=== PATIENT | male | born 1975 | race Two or more races ===

== ENCOUNTER → 2025-02-28 09:14 | Outpatient (BNV) | payer OTHER, SELFPAY | PROVIDERS: Visit Provider Radiology Diagnostic Radiology | DX: S68.620A Partial traumatic transphalangeal amputation of right index finger, initial encounter (principal) | CPT/HCPCS: 73130 ==

== ENCOUNTER 2025-02-28 09:45 | Emergency (ER) | payer OTHER, SELFPAY ==
--- OUTSIDE RECORDS SUMMARY | 2024-03-13 11:00 | XMS_ITS ---
Author Organization [facility], [place] Address [address] [facility] 1 [place] [address] Care Team Providers Care Crime Scene Photographer Name Role Phone Migration, Provider Unavailable Unavailable REASON FOR VISIT Follow-up Appt Encounters Encounter Location Date Provider Diagnosis [facility], [address] [address] 03/13/2024 Provider Migration Plan Of Treatment No Information Progress Notes * ZAHRAA COOPEROB:1975 ([age] yo M)Acc No.[id number]:03/13/2024 Progress Notes Patient: Zion DUGGANMaryanne MARTINEZ Provider: Abdirahman lindsay Migration :1975 A ge:48 Y S ex:Male Date:03/13/2024 Address:[address] [place], [place] [phone] Subjective: * Chief Complaints: * F ollow-up Appt * Ocular Surgical History: Objective: Vision Examination: * Electronic signature of Prov ider Migration on 02/28/2025 at 11:31 AM EDT Sign off status: Pending * Provider: Abdirahman lindsay Migration Date: 0 03/13/2024 Generated for Muriel zheng/Barb/eTransmitting on: 0 02/28/2025 11:31 AM EDT
--- OUTSIDE RECORDS SUMMARY | 2024-04-27 12:00 | XMS_ITS ---
Author Organization [facility], [place] Address [address] [facility] 1 [place] [address] Care Team Providers Care Print Shop Helper Name Role Phone Migration, Provider Unavailable Unavailable REASON FOR VISIT Follow-up Appt Encounters Encounter Location Date Provider Diagnosis [facility], [address] [address] 04/27/2024 Provider Migration Plan Of Treatment No Information Progress Notes * ZAHRAA COOPEROB:1975 ([age] yo M)Acc No.[id number]:04/27/2024 Progress Notes Patient: Zion DUGGANMaryanne MARTINEZ Provider: Abdirahman Bueno :1975 A ge:49 Y S ex:Male Date:04/27/2024 Address:[address] [place], [place] [phone] Subjective: * Chief Complaints: * F ollow-up Appt * Ocular Surgical History: Objective: Vision Examination: * Electronic signature of Prov ider Migration on 02/28/2025 at 11:31 AM EDT Sign off status: Pending * Provider: Abdirahman lindsay Migration Date: 1 Generated for Muriel zheng/Barb/eTransmitting on: 0 02/28/2025 11:31 AM EDT
--- NOTE | ~2025-02-28 | XR_ITS ---
EXAMINATION: XR HAND, RIGHT CLINICAL INFORMATION: amputated finger tips COMPARISON: None available. TECHNIQUE: PA, lateral, and oblique views of the right hand. FINDINGS: There is amputation of the soft tissues of the distal fourth digit and the distal aspect of the tuft. Bone is exposed.. No other abnormalities are evident. XR/XR hand RT min 3V IMPRESSION: Amputation of the distal fourth digit of the right hand involving soft tissues and the tip of the tuft. Electronically signed by: Kali Jin MD 02/28/2025 10:18 AM EDT
[2025-02-28 09:47] VITALS: BP 168/80; PULSE 91; RESP 18; TEMP 35.7; O2SAT 96; BMI 28.2
--- NOTE | 2025-02-28 11:15 | ED.EXTPRO ---
HPI - Extremity Problem General Chief complaint: Extremity Injury, Upper Stated complaint: index/ middle finger injury Time Seen by Provider: 02/28/25 10:49 Source: patient Mode of arrival: ambulatory Limitations: no limitations History of Present Illness ED Provider: Corine Phelan PA-C HPI Narrative: Patient reports to the emergency department today after falling traumatic event that occurred at work to his right hand. Original note was written during patient's visit however patient is seen by orthopedist. Accidentally deleted Patient is employed by [employer]. He reports while working today he had a metal board while holding onto the side is something in it sliced over his hand. Patient is left-hand dominant. He reports not feeling any significant pain. He covered it and came right here. He has been working for this [employer] for several years with no prior injuries to this in the past. He is denying any paresthesias or weakness. His tetanus status is unknown Related Data Previous Rx's ?Medication ?Instructions ?Recorded amoxicillin 875 mg-potassium 1 tab PO BID 7 days #14 tabs 03/02/25 clavulanate 125 mg tablet oxycodone-acetaminophen 5 mg-325 1 tab PO Q6H PRN Pain #10 tabs 03/05/25 mg tablet Allergies Allergy/AdvReac Type Severity Reaction Status Date / Time No Known Allergies Allergy Verified 03/02/25 11:52 Review of Systems Review of Systems: Yes all other systems are reviewed and are negative PMFSH Past Medical History Attestation statement: The following information was validated with the patient. Source: old records reviewed and nursing notes reviewed Social History Social History (Updated 03/02/25 @ 12:03 by TATE Horowitz) Patient Tobacco Use Status: Never used Tobacco Current occupational status: employed Current occupation: [employer] Physical Exam Exam: Exam: Vital Signs: Vital Signs: Last Vital Signs Temp 96.3 F L 02/28/25 11:28 Pulse 91 02/28/25 11:28 Resp 18 02/28/25 11:28 BP 168/80 H 02/28/25 11:28 Pulse Ox 96 02/28/25 11:28 O2 Del Method Room Air 02/28/25 11:28 BMI result Body Mass Index 28.2 General: Appears in no acute distress, appears well nourished body habitus is normal, appears stated age. No septic or ill-appearing. Vitals reviewed normal, PMH/Social and Surgical hx reviewed including allergies and current medications. Head: Normocephalic, no obvious trauma or skin lesions noted. Eyes: EOMI ENMT: moist oral mucosa Neck: trachea midline Cardiovascular: peripheral perfusion normal, Regular heart rate Respiratory: no respiratory distress Abdomen: nondistended Extremities: warm and moving without difficulty - open fracture right middle and 4th finger as above with damage nailbed. Cap refill less than 3 seconds distal pulses 2+ sensation is intact but no pain on proportion no arterial bleed or tendon rupture Psych: Cooperative Neuro: Alert and oriented. Medications Administered Discontinued Medications Generic Name Dose Route Start Last Admin Trade Name Freq PRN Reason Stop Dose Admin Diphtheria/Tetanus/Acell Pertussis 0.5 ml 02/28/25 11:22 02/28/25 11:33 Diphth,Pertus(Acell),Tet Adult 0.5 Ml Syringe IM 02/28/25 11:23 0.5 ml .ONCE ONE Administration Medical Decision Making Medical Decision Making MDM Narrative: Well-appearing 49-year-old male who sustained injury to his nondominant hand while working today via a sharp object. Upon arrival to ED he is afebrile. He received a rapid medical exam where he had imaging done of his right hand which shows open fractures of these affected areas. There is no evidence of arterial bleed or tendon rupture neurovascularly intact. There was no tissue unfortunately to still sutured together. Plan to place surgery form on this area and place on Keflex with outpatient follow up was discussed with on-call orthopedist Darren Miles who agreed with this plan. Patient's tetanus was updated. He was placed on Keflex. While I was taking care of patient orthopedist office already reached out to him to schedule follow up with him 2 days from now. As this was a work-related injury I will keep him out of work until further evaluated. Patient states he has pain is well-controlled he did not feel he needed anything stronger recommend Tylenol for today Motrin tomorrow with cool compresses. ED precautions were discussed with the patient he demonstrated verbal understanding of this plan he agreed he was discharged home stable Differential Diagnosis Differential Diagnoses: The differential diagnosis associated with the presentation includes open fracture tendon rupture arterial bleed Admission/Observation Consideration of admission/observation: Escalation of care including admission/observation considered Patient would have been admitted to the hospital had his work up had any findings where hospital admission was appropriate and his clinical presentation warranted hospital admission. Consult Healthcare Provider Management of the patient was discussed with: Crm Marketing Executive (orthopedist) Independent Interpretation I performed an independent interpretation of an: Plain X-Ray Radiology Impression Discussion of test interpretation with radiology: I have reviewed the radiologist's reading. Prescription Management I considered prescription management with: Pain Medication and Antibiotic Procedures Laceration Laceration 1: Site: upper extremity Side (If applicable): right Size (cm): 1.5 Description: other (Macerated tissue skin avulsion) Pre-repair: wound explored and irrigated extensively Technique: other (Surgifoam, nonadhesive dressing and coban to both right middle and fourth distal phalanx) Discharge Plan Discharge Clinical Impression: Open fracture of phalanx of finger of right hand, Laceration of right middle finger with damage to nail Patient Disposition: Home, Self-Care Instructions: Finger Fracture (ED), Finger Laceration (ED) Additional Instructions: You were seen in the emergency department today status post an injury to her right hand while working. You have open fracture Of her 4th digit with skin avulsions to both of these areas. I placed Surgifoam on both of these areas you do not need to remove this this will slowly be absorbed by your wound. You can however change the dressing on the outside if he would like otherwise please leave this dressing in place until you see orthopedics in 2 days on Wednesday. I would avoid any NSAIDs such as ibuprofen or Motrin over the next 2 days as this increases bleeding. You can take 650 mg of Tylenol every 6 hours if needed for pain and discomfort. Do not exceed 3000 mg in 24 hours. Try to keep your rapid upper extremity she has possible. general handling supervisor the antibiotic from the pharmacy as this is an open fracture and there be risk for bone infection. Return for any concerns such as increased pain discharge or numbness at the site. Prescriptions: No Action oxycodone-acetaminophen 5-325 mg Tablet 1 tab PO Q6H PRN (Reason: Pain) Qty: 10 0RF Rx Instructions: Partial Fill upon patient request. amoxicillin-pot clavulanate 875-125 mg tablet 1 tab PO BID 7 Days Qty: 14 0RF Ref[place]: [facility] [place]Provider Group] - 2 days Referral Note: appt scheduled as they called you while here Stand Alone Forms: Work/School Release Discharge Date/Time: 02/28/25 12:16 Print Language: Estonian
[2025-02-28 11:28] VITALS: BP 168/80; PULSE 91; RESP 18; TEMP 35.7; O2SAT 96
[2025-02-28] MEDS: Diphth,Pertus(ACell),Tet Adult 0.5 ML SYRINGE IM (11:33)
--- OUTSIDE RECORDS SUMMARY | 2025-02-28 11:33 | XMS_ITS | Patient Health Record ---
Author Organization [facility] Address [address] [place] [address] Care Team Providers Care Plumber'S Assistant Name Role Phone Hany Gee Primary Care Provider Bart Gallegos Unavailable [phone] Reason For Referral No Information Medications Medication SIG (Take, Route, Fr equency, Duration) Notes Start Date End Date Status Ibuprofen Active Percocet 5-325 MG 1 tablet as needed O rally every 6 hrs 03/22/2012 Active Problems Problem Type SNOMED Code ICD Code Onset Dates Problem Status W/U Status Risk Notes Problem Hammer toe (072979067) Hammer toe (735.4) Active confirmed Problem Ganglion cyst (16532819) Ganglion Cyst (727.43) Active confirmed Problem Pain in limb (31449618) Pain in Limb (729.5) Active confirmed Problem Exostosis (54828888) Exostosis (726.91) Active confirmed Plan Of Treatment Pending Test Test Name Order Date X ray : Foot, right 2V 03/22/2012 X ray : Foot, right 2V 04/01/2012 X ray : Foot, right 2V 04/15/2012 X ray : Foot, right 2V 05/17/2012 X ray : Foot, left 3V 12/29/2011 X ray : Foot, right 3V 12/29/2011 L4386- Walking Boot 03/22/2012 L4386- Walking Boot 04/01/2012 Insurance Providers Payer Name Payer Address Payer Phone Subscriber Number Group Number Insured Name Patient Relationship to Insured Coverage Start Date Coverage End Date [facility] [address] [place] [address] [id number] Olegario Lao Self - patient is the insured Medical (General) History Medical History History ICD Code chicken pox headaches/migraines Surgical History Surgery Date(Month/Year) bunionectomy 03/17/12
--- OUTSIDE RECORDS SUMMARY | 2025-02-28 11:33 | XMS_ITS | Clinical Summary ---
Author Organization [facility] [address] [facility] Address [address] [place] [address] Phone Care Team Providers Care Maintenance Superintendent Name Role Phone Hany Gee MD Primary Care Provider [phone] Allergies Active Allergy Reactions Criticality Noted Date Comments Latex Itching,Rash 09/21/2024 Medications GaviLyte-C 240-22.72-6.72 -5.84 gram solution MIX AND DRINK DIRECTED FOR 1 DOSE 08/07/2024 Active Active Problems Problem Noted Date Diagnosed Date History of diverticulitis 08/07/2024 Surgical History Surgery Date Site/Laterality Comments COLONOSCOPY Family History Medical History Relation Name Comments Colon polyps Father Heart disease Father Colon cancer Neg Hx Relation Name Status Comments Father Social History Tobacco Use Types Packs/Day Years Used Date Smoking Tobacco: Never Smokeless Tobacco: Never Tobacco Cessation:Counseling Given: Not Answered Alcohol Use Standard Drinks/Week Comments Yes 1 (1 standard drink = 0.6 oz pur e alcohol) Interpersonal Safety Answer Date Record ed Physical Abuse 09/29/2024 Verbal Abuse 09/29/2024 Sex and Gender Information Value Date Recorded Sex Assigned at Male 09/29/2024 8:40 AM EDT Legal Sex Male 1:55 AM EST Gender Identity Male 09/29/2024 8:40 AM EDT Sexual Orientation Straight 09/29/2024 8: 40 AM EDT Obstetrics History Last Filed Vital Signs Vital Sign Reading Time Taken Comments Blood Pressure 117/87 09/29/2024 10:17 AM EDT Pulse 84 09/29/2024 10:17 AM EDT Temperature 36.2 C (97.2 F) 09/29/2024 9:11 AM EDT Respiratory Rate 15 09/29/2024 10:17 AM EDT Oxygen Saturation 98% 09/29/2024 10:17 AM EDT Inhaled Oxygen Concentration - - Weight 79.4 kg (175 lb) 09/29/2024 9:11 AM EDT Height 167.6 cm (5' 6 ) 09/29/2024 9:11 AM EDT Body Mass Index 28.25 09/29/2024 9:11 AM EDT Plan of Treatment Health Maintenance Due Date Last Done Comments Hepatitis B Vaccines (1 of 3 - 19+ 3-dose series) 1995 DTaP,Tdap,and Td Vaccines (2 - Td or Tdap) 12/15/2018 12/15/2008 Cholesterol Screening (Lipid Panel) 05/31/2022 HIV Screening 05/31/2022 Hepatitis C Screening 05/31/2022 Social Influencers of Health Screening 05/31/2022 Depression Screening 06/28/2024 COVID-19 Vaccine (3 - 2024-2 6 season) 2025 08/16/2020, 07/19/2020 Influenza Vaccine (#1) 2025 Colorectal Cancer Screening: Colonoscopy 09/29/2034 09/29/2024 MMR Vaccines Aged Out 12/30/2018 No longer eligi ble based on patient's age to complete this topic HIB Vaccines Aged Out No longer eligi ble based on patient's age to complete this topic HPV Vaccines Aged Out No longer eligi ble based on patient's age to complete this topic Hepatitis A Vaccines Aged Out No long er eligible based on patient's age to complete this topic IPV Vaccines Aged Out No longer eligi ble based on patient's age to complete this topic Meningococcal ACWY Vaccine Aged Out N o longer eligible based on patient's age to complete this topic Meningococcal B Vaccine Aged Out No l onger eligible based on patient's age to complete this topic Pneumococcal Vaccine: Pediatrics (0 to 5 Years) and At-Risk Patients (6 to 49 Years) Aged Out No longer eligible b ased on patient's age to complete this topic RSV Immunization Patients Under 20 months Aged Out No longer eligible b ased on patient's age to complete this topic Varicella Vaccines Aged Out No longer eligible based on patient's age to complete this topic Procedures Procedure Name Priority Date/Time Associated Diagnosis Comments COLONOSCOPY Routine 09/29/2024 9:56 AM EDT Oropharyngeal dysphagia Colon cancer screening from Last 3 Months or Most Recently Relevant to Health Maintenance Results * COLONOSCOPY Anesthesia - MAC; [facility] ENDOSCOPY (09/29/2024 9:56 AM EDT) Anatomical Region Laterality Modality Other 09/29/2024 9:29 AM EDT Impressions 09/29/2024 9:55 AM EDT - Diverticulosis in the entire examined colon. - Non-bleeding internal hemorrhoids. - The examination was otherwise normal on direct and retroflexion views. - No specimens collected. Recommendation: - Perform an upper GI endoscopy today. - Repeat colonoscopy in 10 years for surveillance. Narrative 09/29/2024 9:55 AM EDT [facility] GI Patient Name: Olegario Lao Procedure Date: 09/29/2024 9:29 AM Date of : 1975 Age: 49 Room: ROOM 14 Gender: Male Note Status: Finalized Attending MD: Farshad Trejo MD, Procedure Date No Time: 09/29/2024 Procedure: Colonoscopy Indications: Rectal bleeding Providers: Farshad Trejo MD Referring MD: Farshad Trejo MD Medicines: Monitored Anesthesia Care Complications: No immediate complications. Estimated Blood Loss: Estimated blood loss: none. Procedure: Pre-Anesthesia Assessment: - ASA Grade Assessment: II - A patient with mild systemic disease. - After reviewing the risks and benefits, the patient was deemed in satisfactory condition to undergo the procedure. After I obtained informed consent, the scope was passed under direct vision. Throughout the procedure, the patient's blood pressure, pulse, and oxygen saturations were monitored continuously.The Colonoscope was introduced through the anus and advanced to the cecum, identified by appendiceal orifice and ileocecal valve. The colonoscopy was performed without difficulty. The patient tolerated the procedure well. The quality of the bowel preparation was good. Findings: Multiple small and large-mouthed diverticula were found in the entire colon. Non-bleeding internal hemorrhoids were found during retroflexion. The hemorrhoids were small. The exam was otherwise without abnormality on direct and retroflexion views. Procedure Code(s): --- Professional --- 78570, Colonoscopy, flexible; diagnostic, including collection of specimen(s) by brushing or washing, when performed (separate procedure) Diagnosis Code(s): --- Professional --- K62.5, Hemorrhage of anus and rectum CPT copyright 2020 [employer]. All rights reserved. The codes documented in this report are preliminary and upon solutions analyst review may be revised to meet current compliance requirements. Farshad Trejo MD 09/29/2024 9:55:40 AM This report has been signed electronically.Farshad Trejo MD Number of Addenda: 0 Note Initiated On: 09/29/2024 9:29 AM Scope In: Scope Out: Endoscopy Department at [facility] - [address] [place] [id number] Procedure Note Farshad Trejo MD - 09/29/2024 [facility] GI Patient Name: Olegario Lao Procedure Date: 09/29/2024 9:29 AM Date of : 1975 Age: 49 Room: ROOM 14 Gender: Male Note Status: Finalized Attending MD: Farshad Trejo MD, Procedure Date No Time: 09/29/2024 Procedure: Colonoscopy Indications: Rectal bleeding Providers: Farshad Trejo MD Referring MD: Farshad Trejo MD Medicines: Monitored Anesthesia Care Complications: No immediate complications. Estimated Blood Loss: Estimated blood loss: none. Procedure: Pre-Anesthesia Assessment: - ASA Grade Assessment: II - A patient with mild systemic disease. - After reviewing the risks and benefits, thepatient was deemed in satisfactory condition to undergo the procedure. After I obtained informed consent, the scope was passed under direct vision. Throughout theprocedure, the patient's blood pressure, pulse, and oxygen saturations were monitored continuously.The Colonoscope was introduced through the anus and advanced to the cecum, identified by appendiceal orifice and ileocecal valve. The colonoscopy was performed without difficulty. The patient tolerated the procedure well. The quality of the bowel preparation was good. Findings: Multiple small and large-mouthed diverticula were found in the entire colon. Non-bleeding internal hemorrhoids were found during retroflexion. The hemorrhoids were small. The exam was otherwise without abnormality ondirect and retroflexion views. Procedure Code(s): --- Professional --- 75523, Colonoscopy, flexible; diagnostic, including collection of specimen(s) by brushing or washing,when performed (separate procedure) Diagnosis Code(s): --- Professional --- K62.5, Hemorrhage of anus and rectum CPT copyright 2020 [employer]. All rights reserved. The codes documented in this report are preliminary and upon solutions analyst reviewmay be revised to meet current compliance requirements. Farshad Trejo MD 09/29/2024 9:55:40 AM This report has been signed electronically.Farshad Trejo MD Number of Addenda: 0 Note Initiated On: 09/29/2024 9:29 AM Scope In: Scope Out: Endoscopy Department at [facility] - [address] [place] [phone] IMPRESSION: - Diverticulosis in the entire examined colon. - Non-bleeding internal hemorrhoids. - The examination was otherwise normal on directand retroflexion views. - No specimens collected. Recommendation: - Perform an upper GI endoscopy today. - Repeat colonoscopy in 10 years forsurveillance. Farshad Trejo MD GI~PROCEDURE ORDERABLES Final Result from Last 3 Months or Most Recently Relevant to Health Maintenance Insurance [facility] Care Teams Maintenance Superintendent Relationship Specialty Start Date End Date Hany Gee MD [address] [place] [phone] PCP - General Internal Medicine 07/04/24
--- OUTSIDE RECORDS SUMMARY | 2025-02-28 11:33 | XMS_ITS ---
Author Name [facility] Organization Unknown Care Team Organization Name Specialty Phone Email Start Date End Da te [facility] Hany [facility] 11/02/2022 02/14/20 24
--- OUTSIDE RECORDS SUMMARY | 2025-02-28 11:33 | XMS_ITS | Patient Health Record ---
Author Organization [facility] [place] Address [address] [place] [address] Care Team Providers Care Tapper Supervisor Name Role Phone Migration, Provider Unavailable Unavailable Reason For Referral No Information Encounters Encounter Location Date Provider Diagnosis [facility] [address] [address] 03/13/2024 Provider Migration [facility] [address] [address] 04/27/2024 Provider Migration Plan Of Treatment No Information Insurance Providers Payer Name Payer Address Payer Phone Subscriber Number Group Number Insured Name Patient Relationship to Insured Coverage Start Date Coverage End Date [employer] [facility] [address] [place] [phone] [id number] MARTINEZ COOPER Self - patient is the insured
== END 2025-02-28 12:16 | disposition home or self-care (01) ==
PROVIDERS: Emergency Provider Emergency Medicine Emergency Medical Services
DX: S61.212A Laceration without foreign body of right middle finger without damage to nail, initial encounter (principal); S62.602A Fracture of unspecified phalanx of right middle finger, initial encounter for closed fracture; M79.641 Pain in right hand; W26.9XXA Contact with unspecified sharp object(s), initial encounter; Y93.9 Activity, unspecified; Y92.9 Unspecified place or not applicable; Y99.0 Civilian activity done for income or pay; Z23 Encounter for immunization
CPT/HCPCS: 12041; 73130; 90471; 90715; 99284

== ENCOUNTER 2025-03-02 11:48 | Outpatient (REF) | payer BC, OTHER, SELFPAY ==
--- NOTE | ~2025-03-02 | XR_ITS ---
EXAMINATION: XR HAND, RIGHT CLINICAL INFORMATION: M79.641 - Pain in right hand , follow-up amputation COMPARISON: 2 days ago TECHNIQUE: PA, lateral, and oblique views of the right hand. FINDINGS: Bandages placed over the third and fourth digits. Again noted is soft tissue amputation and minimal infiltration the tip of the tuft of the fourth distal phalanx. There appears to be soft tissues covering the distal end of the previously exposed tuft of the fourth digit. No other changes are seen. XR/XR hand RT min 3V IMPRESSION: Dressings in place over the distal end of the third and fourth digits. Electronically signed by: Kali Jin MD 03/02/2025 12:08 PM EDT
== END 2025-03-02 11:49 | disposition home or self-care (01) ==
LOC: HO.HOSX 11:48
DX: M79.641 Pain in right hand (principal); S68.114A Complete traumatic metacarpophalangeal amputation of right ring finger, initial encounter; W23.0XXA Caught, crushed, jammed, or pinched between moving objects, initial encounter; Y92.69 Other specified industrial and construction area as the place of occurrence of the external cause; Y99.0 Civilian activity done for income or pay
CPT/HCPCS: 73130

== ENCOUNTER 2025-03-02 11:48 | Outpatient (AMB) | payer BC, SELFPAY ==
--- NOTE | 2025-03-02 11:51 | MHC.OFFVIS ---
Vital Signs 03/02/25 11:52 Height 5 ft 6 in Weight 175 lb BMI 28.2 Intake Visit Reasons: ED/FC: RT MF Lac w/ Nail Damage, DOI: ? Intake Note: Olegario is a 49 year old left hand dominant male, new patient, who presents today for an ED Follow Up status post Right Middle Finger Laceration with Nail Damage, Work-Related Injury: 02/28/25. He was started on Cephalexin. Patient reports a tingling sensation at the right 3rd and 4th DIP's. He denies pain. He is taking ibuprofen along with the prescribed antibiotics. Denies previous injuries or surgeries to the right hand. IMPRESSION: Amputation of the distal fourth digit of the right hand involving soft tissues and the tip of the tuft. Allergies No Known Allergies Allergy (Verified 03/02/25 11:52) HPI HPI ED/FC: RT MF Lac w/ Nail Damage, DOI: ?: Details: Olegario is a 49 year old left hand dominant male, new patient, who presents today for an ED Follow Up status post Right Middle Finger Laceration with Nail Damage, Work-Related Injury: 02/28/25. Patient reports that while at work on that date, his hand was crushed under a plate, and resulted in injuries to both the middle and ring fingers of the right hand. Patient reports there was a large amount of bleeding at date of injury, and is concerned about removing his bandages for further bleeding. He was started on Cephalexin. Patient reports a tingling sensation at the right 3rd and 4th DIP's. He denies pain. He is taking ibuprofen along with the prescribed antibiotics. Denies previous injuries or surgeries to the right hand. IMPRESSION: Amputation of the distal fourth digit of the right hand involving soft tissues and the tip of the tuft. [facility] Social History (Updated 03/02/25 @ 12:03 by TATE Horowitz) Patient Tobacco Use Status: Never used Tobacco Current occupational status: employed Current occupation: [employer] Review of Systems Const All systems reviewed & are unremarkable except as noted in HPI and below Physical Exam Vital Signs: BMI result Body Mass Index 28.2 Extrem Other: Patient is alert, oriented, and in no acute distress. Neuro: Normal sensation of the tips of all unaffected digits of the right hand at this time Vascular: Cap refill brisk Pain: Minimal discomfort with bandage removal of the R RF and MF No pain to palpation of proximal aspects of these digits, or to the other digits of the R hand ROM: Patient is able to flex and extend the R thumb, IF, and SF without difficulty Patient is able to flex and extend at the MCP and PIP joints of the R MF anf RF Skin: Guillotine type partial amputation of the R RF through the distal phalanx, nail removed traumatically THere is an approximately 3-4 cm in diameter area of total skin loss on the pad of the R MF Significant maceration noted of both digits No active discharge or other evidence of infection noted General: No ecchymosis, erythema, or evidence of infection. Psych: Appears grossly normal Affect normal Attitude cooperative Results Reviewed Results Reviewed: X-Rays taken in clinic today and independently reviewed by me demonstrate partial trauamatic amputation of the R RF through the distal phalanx, as well as a questionable area of lucency on the distal phalanx of the R MF concerning for non-dislplaced fracture Assessment & Plan Assessment & Plan (1) Traumatic amputation of right ring finger: Code(s): S68.114A - Complete traumatic metacarpophalangeal amputation of right ring finger, initial encounter Category: Medical (2) Open fracture of distal phalanx of right middle finger: Code(s): S62.632B - Displaced fracture of distal phalanx of right middle finger, initial encounter for open fracture Category: Medical Plan 1. Traumatic amputation of right ring finger through distal phalanx 2. Question open fracture of right middle finger distal phalanx Date of injury 02/28/2025 I educated the patient about the condition. I discussed both operative and nonoperative treatment options. The patient would like to proceed with surgery. The risks and benefits of operative treatment were discussed with the patient and the patient wishes to proceed with surgery. These risks include, but are not limited to, risk of damage to blood vessels, nerves, tendons, infection, recurrence, incomplete relief of preoperative symptoms, persistent pain, possible need for further surgery, and the risks associated with regional blocks and/or anesthesia. Plan is to take the patient to the operating room on 03/05/25 for the following procedures: 1. Amputation revision of right ring finger with possible nail bed excision under general anesthesia 2. Possible right middle finger revision amputation of the general anesthesia with possible nail bed excision All of the preoperative paperwork including the consent was discussed today. All of the patient's questions were answered in the clinic today. The patient understands that they will be in contact with our instructor adjunct surgical technician to discuss scheduling their procedure. Patient denies diabetes, blood thinners, asthma, heart issues, lung issues, kidney issues, or current smoking. Antibiotics switched to Augmentin at this time, patient should stop Keflex and begin Augmentin this evening Patient should not be doing any lifting with the right hand Patient is educated he will likely have to be out of work for at least 3-4 weeks postoperatively At the very least, patient is held out of work until 1st postoperative appointment, patient understands that it will likely be longer, especially if his job can not accommodate light duty precautions Patient understands this and is amenable to this plan Orders: Orders XR hand RT min 3V 03/02/25 M79.641 - Pain in right hand Medications: New amoxicillin-pot clavulanate 875-125 mg 1 tab PO BID 14 tabs 0RF 7 days Discontinued cephalexin Discontinued Reason: Ancillary Entered New Order 500 mg PO TID 21 caps 0RF Coding Level of Care Code New Pt Level 4 (60145) Diagnoses Traumatic amputation of right ring finger S68.114A Open fracture of distal phalanx of right middle finger S62.632I
[2025-03-02 11:52] VITALS: BMI 28.2
== END 2025-03-02 12:43 | disposition home or self-care (01) ==
LOC: HO.HOS 11:49
DX: S68.114A Complete traumatic metacarpophalangeal amputation of right ring finger, initial encounter (principal); S62.632B Displaced fracture of distal phalanx of right middle finger, initial encounter for open fracture
CPT/HCPCS: 99204

== ENCOUNTER → 2025-03-02 11:52 | Outpatient (BNV) | payer BC, SELFPAY | PROVIDERS: Visit Provider Radiology Diagnostic Radiology | DX: S68.620D Partial traumatic transphalangeal amputation of right index finger, subsequent encounter (principal) | CPT/HCPCS: 73130 ==

== ENCOUNTER 2025-03-05 13:55 | Day surgery (SDC) | payer OTHER, SELFPAY ==
--- OUTSIDE RECORDS SUMMARY | 2024-03-13 11:00 | XMS_ITS ---
Author Organization [facility], [place] Address [address] [facility] 1 [place] [address] Care Team Providers Care Freight Brake Operator Name Role Phone Migration, Provider Unavailable Unavailable REASON FOR VISIT Follow-up Appt Encounters Encounter Location Date Provider Diagnosis [facility], [address] [address] 03/13/2024 Provider Migration Plan Of Treatment No Information Progress Notes * ZAHRAA COOPEROB:1975 ([age] yo M)Acc No.[id number]:03/13/2024 Progress Notes Patient: Zion DUGGANMaryanne MARTINEZ Provider: Abdirahman lindsay Migration :1975 A ge:48 Y S ex:Male Date:03/13/2024 Address:[address] [place], [place] [phone] Subjective: * Chief Complaints: * F ollow-up Appt * Ocular Surgical History: Objective: Vision Examination: * Electronic signature of Prov ider Migration on 03/02/2025 at 10:58 AM EDT Sign off status: Pending * Provider: Abdirahman lindsay Migration Date: 0 03/13/2024 Generated for Muriel zheng/Barb/eTisrealsmitting on: 0 03/02/2025 10:58 AM EDT
--- OUTSIDE RECORDS SUMMARY | 2024-04-27 12:00 | XMS_ITS ---
Author Organization [facility], [place] Address [address] [facility] 1 [place] [address] Care Team Providers Care Weight Control Engineer Name Role Phone Migration, Provider Unavailable Unavailable REASON FOR VISIT Follow-up Appt Encounters Encounter Location Date Provider Diagnosis [facility], [address] [address] 04/27/2024 Provider Migration Plan Of Treatment No Information Progress Notes * ZAHRAA COOPEROB:1975 ([age] yo M)Acc No.[id number]:04/27/2024 Progress Notes Patient: Zion DUGGANMaryanne MARTINEZ Provider: Abdirahman Bueno :1975 A ge:49 Y S ex:Male Date:04/27/2024 Address:[address] [place], [place] [phone] Subjective: * Chief Complaints: * F ollow-up Appt * Ocular Surgical History: Objective: Vision Examination: * Electronic signature of Prov ider Migration on 03/02/2025 at 10:58 AM EDT Sign off status: Pending * Provider: Abdirahman lindsay Migration Date: 1 Generated for Muriel zheng/Barb/eTisrealsmitting on: 0 03/02/2025 10:58 AM EDT
--- OUTSIDE RECORDS SUMMARY | 2025-03-02 10:59 | XMS_ITS | Patient Health Record ---
Author Organization [facility] [place] Address [address] [place] [address] Care Team Providers Care Machine Finisher Name Role Phone Migration, Provider Unavailable Unavailable Reason For Referral No Information Encounters Encounter Location Date Provider Diagnosis [facility] [address] [address] 03/13/2024 Provider Migration [facility] [address] [address] 04/27/2024 Provider Migration Plan Of Treatment No Information Insurance Providers Payer Name Payer Address Payer Phone Subscriber Number Group Number Insured Name Patient Relationship to Insured Coverage Start Date Coverage End Date [employer] [facility] [address] [place] [address] [id number] MARTINEZ COOPER Self - patient is the insured
--- OUTSIDE RECORDS SUMMARY | 2025-03-02 10:59 | XMS_ITS | Clinical Summary ---
Author Organization [facility] 299 [facility] Address [address] [place] [address] Phone Care Team Providers Care Career Technical Supervisor Name Role Phone Hany Gee MD Primary Care Provider Allergies Active Allergy Reactions Criticality Noted Date [...] Maintenance Results * COLONOSCOPY Anesthesia - MAC; [facility] ENDOSCOPY (09/29/2024 9:56 AM EDT) Anatomical Region [...] for surveillance. Narrative 09/29/2024 9:55 AM EDT [facility] GI Patient Name: Olegario Lao Procedure Date: [...] retroflexion views. Procedure Code(s): --- Professional --- 75507, Colonoscopy, flexible; diagnostic, including collection of specimen(s) by brushing or washing, when performed (separate procedure) Diagnosis Code(s): --- Professional --- K62.5, Hemorrhage of anus and rectum CPT copyright 2020 [employer]. All rights reserved. The codes documented in this report are preliminary and upon nut feeder review may be revised to meet current compliance requirements. Farshad Trejo MD 09/29/2024 9:55:40 AM This report has been signed electronically.Farshad Trejo MD Number of Addenda: 0 Note Initiated On: 09/29/2024 9:29 AM Scope In: Scope Out: Endoscopy Department at [facility] - [address] [place] [phone] Procedure Note Farshad Trejo MD - 09/29/2024 [facility] GI Patient Name: Olegario Lao Procedure Date: [...] retroflexion views. Procedure Code(s): --- Professional --- 37138, Colonoscopy, flexible; diagnostic, including collection of specimen(s) by brushing or washing,when performed (separate procedure) Diagnosis Code(s): --- Professional --- K62.5, Hemorrhage of anus and rectum CPT copyright 2020 [employer]. All rights reserved. The codes documented in this report are preliminary and upon nut feeder reviewmay be revised to meet current compliance requirements. Farshad Trejo MD 09/29/2024 9:55:40 AM This report has been signed electronically.Farshad Trejo MD Number of Addenda: 0 Note Initiated On: 09/29/2024 9:29 AM Scope In: Scope Out: Endoscopy Department at [facility] - [address] [place] [phone] IMPRESSION: - Diverticulosis in the entire examined colon. - Non-bleeding internal hemorrhoids. - The examination was otherwise normal on directand retroflexion views. - No specimens collected. Recommendation: - Perform an upper GI endoscopy today. - Repeat colonoscopy in 10 years forsurveillance. Farshad Trejo MD GI~PROCEDURE ORDERABLES Final Result from Last 3 Months or Most Recently Relevant to Health Maintenance Insurance [facility] Care Teams Career Technical Supervisor Relationship Specialty Start Date End Date Hany Gee MD [address] [place] [phone] PCP - General Internal Medicine 07/04/24
--- OUTSIDE RECORDS SUMMARY | 2025-03-02 10:59 | XMS_ITS | Patient Health Record ---
Author Organization [facility] Address [address] [place] [address] Care Team Providers Care Grain Elevator Operator Name Role Phone Hany Gee Primary Care Provider Bart Gallegos Unavailable [phone] Reason For Referral No Information Medications Medication SIG (Take, Route, Fr equency, Duration) Notes Start Date End Date Status Ibuprofen Active Percocet 5-325 MG 1 tablet as needed O rally every 6 hrs 03/22/2012 Active Problems Problem Type SNOMED Code ICD Code Onset Dates Problem Status W/U Status Risk Notes Problem Hammer toe (263146581) Hammer toe (735.4) Active confirmed Problem Ganglion cyst (04946468) Ganglion Cyst (727.43) Active confirmed Problem Pain in limb (25053956) Pain in Limb (729.5) Active confirmed Problem Exostosis (87396375) Exostosis (726.91) Active confirmed Plan Of Treatment [...] Insured Coverage Start Date Coverage End Date [facility] [address] [place] [address] [id number] Olegario Lao Self - patient is the insured Medical (General) History Medical History History ICD Code chicken pox headaches/migraines Surgical History Surgery Date(Month/Year) bunionectomy 03/17/12
[2025-03-05 14:21] VITALS: BMI 27.9
[2025-03-05 14:36] VITALS: PULSE 84; RESP 16; TEMP 36.5; O2SAT 97
--- NOTE | 2025-03-05 16:23 | MHC.SHP ---
Pre-Procedural Eval Section A - 24 Hr Update-Section A only Date of Service: 03/05/25 The patient is an INPATIENT: No Changes since office visit: No Cold of Flu in the past 2 weeks, No New Medical Problems, No Changes in Medication and No Patient answered all questions The patient has been examined within 24 hours of the surgical procedure. The History & Physical has been completed within 30 days and I have reviewed it.: Yes Section B - Complete if H&P > 30 days Chief Complaint: Partial traumatic transphalangeal amputation Allergies: Allergies Allergy/AdvReac Type Severity Reaction Status Date / Time No Known Allergies Allergy Verified 03/02/25 11:52 Exam Exam Comment: I met the patient in preop hold. This is a work-related injury where his right ring and middle finger tips got caught between 2 heavy plates. Radiographs in photographs of the injury were reviewed and a treatment plan made. Plan Diagnosis/Plan: Unchanged I have reviewed the history and physical and performed a pertinent physical examination on my patient. No changes have occurred unless specified. Assessment and plan: 1. Right middle finger open distal phalanx fracture and near amputation with soft tissue loss 2. Right ring finger open distal phalanx fracture and near amputation with soft tissue loss and partial loss of the nail bed I educated the patient about these issues We discussed operative and non operative treatment options and I am recommending surgery. The patient agrees. The risks and benefits of operative treatment were discussed with the patient and the patient wishes to proceed with surgery. These risks include, but are not limited to risk of damage to blood vessels, nerves, tendons, infection, recurrence, incomplete relief of preoperative symptoms, persistent pain, possible need for further surgery and the risks associated with regional blocks and anesthesia. The plan is to take the patient to the operating room today for the following procedures: 1. Right middle finger revision amputation 2. Right ring finger revision amputation All of the preoperative paperwork including the consent was filled out today. All the patient's questions were answered. Time Spent With Patient Time: Total time managing care of this patient today ____ minutes.
--- NOTE | 2025-03-05 16:27 | P.CONAN_ITS ---
[facility] Active Problems Active Problems: All Active Problems (Updated 03/04/25 @ 11:28 by MAGDALENA Gabriel) Open fracture of distal phalanx of right middle finger (Acute) Traumatic amputation of right ring finger (Acute) Family History Family history of problems with anesthesia: No Surgical History History of Problems with Anesthesia: No Social History Social History (Updated 03/02/25 @ 12:03 by TATE Horowitz) Patient Tobacco Use Status: Never used Tobacco Use of substances other than those prescribed or required for medical reasons: No Advance Directives: No Advance Directives Information Provided: Yes Current occupational status: employed Current occupation: [employer] Allergies Allergy/AdvReac Type Severity Reaction Status Date / Time No Known Allergies Allergy Verified 03/02/25 11:52 Exam Height,Weight and Vital Signs: Height 5 ft 6 in Weight 78.3 kg Last Vital Signs Temp 97.7 F 03/05/25 14:36 Pulse 84 03/05/25 14:36 Resp 16 03/05/25 14:36 Pulse Ox 97 03/05/25 14:36 O2 Del Method Room Air 03/05/25 14:36 Airway Mallampati Class: II TM Dist: >3cm Neck ROM: Full Heart: rrr Lungs: cta Assessment and Plan Assessment Anesthesia Assessment: Anesthesia Plan Discussed and Chart Reviewed Final Anesthetic Review Family History of Problems with Anesthesia: No History of Problems with Anesthesia: No NPO: Yes ASA Class: II Final Preanesthetic Review: No Changes in Pt Med Stat, Meds/Allgs Chart Reviewed and Consent Obtained/Reviewed Patient Risk: Low Procedure Risk: Low Anesthetic Plan Anesthetic Plan: GA Disposition: Standard PACU
--- NOTE | 2025-03-05 16:30 | W.PM.OPN ---
Operative Note Operative Note Date of Service: 03/05/25 Narrative: Operative Note Narrative: Preop diagnosis: 1. Right middle finger open distal phalanx fracture and near amputation with soft tissue loss 2. Right ring finger open distal phalanx fracture and near amputation with soft tissue loss, and partial loss of the nail bed Postop diagnosis: Same Procedure: 1. Right middle finger I and D of open distal phalanx fracture 2. Right ring finger revision amputation 3. Right ring finger I and D of open fracture 4. Right ring finger excision of sterile and germinal nail matrices Surgeon: eBthany Richmond MD Family Services Coordinator: None Anesthesia: General Anesthesia Findings: The right middle finger has an area of full-thickness skin loss over the tip of the finger and a proximally the distal half of the pad of the finger. This is an open wound extending down to the tuft of the distal phalanx with palpable bone within the wound. The right ring finger has essentially a guillotine amputation through the fingertip with exposed bone at the tip of the finger and loss of the proximally half of the nail bed. Wounds appeared clean. Implants: None Tourniquet time: 0 minutes EBL: 5.0 ml Specimen: None Drains: None Complications: None Disposition: Brought to the recovery room in stable condition Plan: Continue oral antibiotics until they are finished. Follow-up next week for wound check, and pre clinic radiographs Removed 2 sutures from the tip of the middle finger at 1st visit Anticipate suture removal from ring finger at 3 weeks postop Indications: The patient is a 49 year old man with crush injuries and partial amputations of the right middle and ring fingertips . The risks and benefits of operative treatment, including but not limited to risk of damage to blood vessels, nerves, tendons, infection, recurrence, persistent pain or numbness, incomplete resolution of preoperative symptoms, or need for further surgery were discussed with the patient and they wished to proceed with surgery. Procedure: Once consent was obtained patient was brought back to the operating suite and placed in the operating table in a supine position. . Perioperative antibiotics and anesthesia was administered by the anesthesia team. A tourniquet was applied to the proximal aspect of the right upper extremity and the limb was prepped and draped in a standard surgical fashion. The tourniquet was not inflated. I did place a finger tourniquet about the base of the ring finger for fewer than 30 minutes. Regarding the right middle finger he had full-thickness skin loss from the tip and a significant portion of the volar aspect of the pad of the finger. The wound was open at the tip and extended directly down to the bone of the distal phalanx. An I&D was performed debriding/excising devitalized soft tissue, and using a curette and a small rongeur to debride the open distal phalanx fracture. The wound was copiously irrigated with normal saline. The nail apparatus appears to be intact. The soft tissues at the tip of the finger were loosely reapproximated with 2 4-0 Prolene sutures. Attention was then turned to the right ring finger. The patient essentially has a guillotine amputation of the right ring finger with more volar sided soft tissue loss, and loss about half of the nail bed. I 1st began with an I&D of the fingertip debriding/excising devitalized soft tissue, and using a curette and a small rongeur to debride the bone of the distal phalanx. The wound was copiously irrigated with normal saline. The Sterile and germinal matrices of the remaining nail bed were excised using a 15. Blade using iris scissors and a small rongeur. I then shortened the distal phalanx using a bone biter to allow for soft tissue closure over bone, and the bone edges were smoothed over using a small rongeur.. The wound was again copiously irrigated with normal saline. I removed a mm of skin from the edges of the eponychial and paronychial folds to facilitate skin rearrangement and healing. Skin edges were reapproximated using some 4-0 Prolene suture. Finger tourniquet was removed and hemostasis obtained with a brief period of local pressure . Digital blocks of the middle and ring fingers were performed using some 0.5% plain Marcaine for postop pain control and sterile dressings were applied. The patient appears to have tolerated the procedure well and with no complications. All digits were well vascularized conclusion of the case.
[2025-03-05 18:10] VITALS: BP 136/93; PULSE 83; RESP 17; TEMP 36.9; O2SAT 94
[2025-03-05 18:15] VITALS: BP 133/92; PULSE 82; RESP 18; O2SAT 95
[2025-03-05 18:20] VITALS: BP 133/97; PULSE 83; RESP 18; O2SAT 98
[2025-03-05 18:25] VITALS: BP 133/88; PULSE 86; RESP 18; TEMP 36.2; O2SAT 98
== END 2025-03-05 18:42 | disposition home or self-care (01) ==
PROVIDERS: Visit Provider Orthopaedic Surgery
PROC: (CPT 26951; principal; 2025-03-05 15:40)
DX: S68.624A Partial traumatic transphalangeal amputation of right ring finger, initial encounter (principal); S68.622A Partial traumatic transphalangeal amputation of right middle finger, initial encounter; W23.1XXA Caught, crushed, jammed, or pinched between stationary objects, initial encounter; Y93.89 Activity, other specified; Y92.69 Other specified industrial and construction area as the place of occurrence of the external cause; Y99.0 Civilian activity done for income or pay
CPT/HCPCS: 26765 ×2; 26951; 11750; J0131; J0665; J0690; J1100; J2003; J2250; J2405; J2704; J3010

== ENCOUNTER → 2025-03-05 13:55 | Outpatient (BNV) | payer OTHER, SELFPAY | PROVIDERS: Visit Provider Orthopaedic Surgery | DX: S62.632B Displaced fracture of distal phalanx of right middle finger, initial encounter for open fracture (principal); S62.634B Displaced fracture of distal phalanx of right ring finger, initial encounter for open fracture | CPT/HCPCS: 11012; 26951 ==

== ENCOUNTER 2025-03-14 13:15 | Outpatient (AMB) | payer OTHER, SELFPAY ==
--- OUTSIDE RECORDS SUMMARY | 2024-03-13 11:00 | XMS_ITS ---
Author Organization [facility], [place] Address [address] [facility] 1 [place] [address] Care Team Providers Care Electric Switch Repairer Name Role Phone Migration, Provider Unavailable Unavailable REASON FOR VISIT Follow-up Appt Encounters Encounter Location Date Provider Diagnosis [facility], [address] [address] 03/13/2024 Provider Migration Plan Of Treatment No Information Progress Notes * ZAHRAA COOPEROB:1975 ([age] yo M)Acc No.[id number]:03/13/2024 Progress Notes Patient: Zion DUGGANMaryanne MARTINEZ Provider: Abdirahman lindsay Migration :1975 A ge:48 Y S ex:Male Date:03/13/2024 Address:[address] [place], [place] [phone] Subjective: * Chief Complaints: * F ollow-up Appt * Ocular Surgical History: Objective: Vision Examination: * Electronic signature of Prov ider Migration on 03/14/2025 at 04:56 PM EDT Sign off status: Pending * Provider: Abdirahman lindsay Migration Date: 0 03/13/2024 Generated for Muriel zheng/Barb/eTransmitting on: 03/14/2025 04:56 PM EDT
--- OUTSIDE RECORDS SUMMARY | 2024-04-27 12:00 | XMS_ITS ---
Author Organization [facility], [place] Address [address] [facility] 1 [place] [address] Care Team Providers Care Pit Slagman Name Role Phone Migration, Provider Unavailable Unavailable REASON FOR VISIT Follow-up Appt Encounters Encounter Location Date Provider Diagnosis [facility], [address] [address] 04/27/2024 Provider Migration Plan Of Treatment No Information Progress Notes * ZAHRAA COPOEROB:1975 ([age] yo M)Acc No.[id number]:04/27/2024 Progress Notes Patient: Zion DUGGANMaryanne MARTINEZ Provider: Abdirahman Bueno :1975 A ge:49 Y S ex:Male Date:04/27/2024 Address:[address] [place], [place] [phone] Subjective: * Chief Complaints: * F ollow-up Appt * Ocular Surgical History: Objective: Vision Examination: * Electronic signature of Prov ider Migration on 03/14/2025 at 04:56 PM EDT Sign off status: Pending * Provider: Abdirahman lindsay Migration Date: 1 Generated for Muriel zheng/Barb/eTransmitting on: 0 03/14/2025 04:56 PM EDT
--- NOTE | 2025-03-14 14:21 | MHC.OFFVIS ---
Vital Signs 03/14/25 14:40 Height 5 ft 6 in Weight 175 lb BMI 28.2 Intake Visit Reasons: PO 1 wk RT RF amp revision 03/05/25 AR Intake Note: Olegario 49 year old left hand dominant male presents today for his P/O visit for his ring ring finger amputation revision from 03/05/[address] hernandez. He is here for a wound check. Dressing removed in office. Patient reports that he is doing well, states his pain has been tolerable. He does complain of sharp pains every now and than. He has completed prescribed antibiotics. States he has no pain or discomfort. Accompanied by: Russell Allergies No Known Allergies Allergy (Verified 03/14/25 14:39) HPI HPI PO 1 wk RT RF amp revision 03/05/25 AR: Details: Olegario is a 49 year old right hand dominant man who presents S/P right middle finger distal phalanx I&D, & ring finger revision amputation, I&D, excision of sterile and germinal nail matrices, DOS: 03/05/25. This is from a crush injury at work, DOI: 02/28/25 He says he is doing well overall, and his pain is tolerable. He has completed his Abx as instructed. [facility] Social History Patient Tobacco Use Status: Never used Tobacco Current occupational status: employed Current occupation: [employer], left hand dominant Review of Systems Const All systems reviewed & are unremarkable except as noted in HPI and below Physical Exam Vital Signs: BMI result Body Mass Index 28.2 Const General: no acute distress and alert Orientation/consciousness: patient oriented x3 HEENT Head: Yes normocephalic and Yes atraumatic Eyes EOM: EOMs intact bilaterally Resp Effort & Inspection: normal respiratory effort and able to speak in complete sentences Cardio Jugular venous distension: no JVD Skin General skin exam: turgor normal Rashes: no rashes Neuro General: patient oriented x3 Extrem Other: The patient was alert oriented and in no acute distress The incision is healing well with no erythema drainage or evidence of infection. Middle finger sutures removed and Steri-Strips applied Ring finger sutures remain in place Good ROM of the digits He can flex & extend all his digits Dark crusty scab on the pad of the middle finger, healing well 8mm diameter area of full thickness skin loss on the pad of the ring finger, some pink granulation tissue growing Sensation is intact Cap refill is brisk Radiographs: 3 views of the right hand were taken and viewed by me today in clinic. They show an amputation through the ring finger distal phalanx. Psych Appearance: grossly normal Affect: normal affect Attitude: cooperative Assessment & Plan Assessment & Plan (1) Traumatic amputation of right ring finger: Code(s): S68.114A - Complete traumatic metacarpophalangeal amputation of right ring finger, initial encounter Category: Medical (2) Open fracture of distal phalanx of right middle finger: Code(s): S62.632B - Displaced fracture of distal phalanx of right middle finger, initial encounter for open fracture Category: Medical Plan Assessment & Plan: 1. Right middle finger distal phalanx fracture, S/P I&D Sutures removed from this finger today 2. Right ring finger distal phalanx fracture & near amputation, S/P A) revision amputation B) I&D of open fracture C) excision of sterile and germinal nail matrices DOS: 03/05/25 DOI: 02/28/25 Crush injury at work The patient appears to be doing well post-operatively Middle finger sutures removed today I educated him about the post-operative course I explained the signs and symptoms of infection, if the patient develops any new or worsening erythema, drainage, pain, or warmth they should contact the clinic or attend the ED. I discussed activity modifications, he is to lift nothing heavier than a cellphone for the next 6 weeks. They should also avoid any heavy impact activities, falls, or sports activities for the next 8 weeks He will perform gentle ROM exercises at home He should avoid any underwater activities He works for the [employer]. He was given a note to remain out fo work until his next appointment. He will follow up in 2 weeks for a wound check and probable removal of ring finger sutures Scribed for Bethany Hernandez MD by Santo Lin medical imaging technologist, on 03/14/25 at 2:30 PM, EST. Orders: Orders XR hand RT min 3V Today M79.641 - Pain in right hand Coding Level of Care Code Global (77412) Diagnoses Traumatic amputation of right ring finger S68.114A Open fracture of distal phalanx of right middle finger S62.632B
[2025-03-14 14:40] VITALS: BMI 28.2
--- OUTSIDE RECORDS SUMMARY | 2025-03-14 16:56 | XMS_ITS | Patient Health Record ---
[facility] Organization [facility] Address [address] [place] [address] Care Team Providers Care Water Pollution Control Technician Name Role Phone Hany Gee Primary Care Provider Bart Gallegos Unavailable [phone] Reason For Referral No Information Medications Medication SIG (Take, Route, Fr equency, Duration) Notes Start Date End Date Status Ibuprofen Active Percocet 5-325 MG 1 tablet as needed O rally every 6 hrs 03/22/2012 Active Problems Problem Type SNOMED Code ICD Code Onset Dates Problem Status W/U Status Risk Notes Problem Hammer toe (902737632) Hammer toe (735.4) Active confirmed Problem Ganglion cyst (31096614) Ganglion Cyst (727.43) Active confirmed Problem Pain in limb (43532674) Pain in Limb (729.5) Active confirmed Problem Exostosis (44255078) Exostosis (726.91) Active confirmed Plan Of Treatment [...] Insured Coverage Start Date Coverage End Date [facility] [address] [place] [address] [id number] Olegario Lao Self - patient is the insured Medical (General) History Medical History History ICD Code chicken pox headaches/migraines Surgical History Surgery Date(Month/Year) bunionectomy 03/17/12
--- OUTSIDE RECORDS SUMMARY | 2025-03-14 16:57 | XMS_ITS | Patient Health Record ---
Author Organization [facility] [place] Address [address] [place] [address] Care Team Providers Care Events And Promotions Assistant Name Role Phone Migration, Provider Unavailable Unavailable Reason For Referral No Information Encounters Encounter Location Date Provider Diagnosis [facility] [address] [address] 04/27/2024 Provider Migration Plan Of Treatment No Information Insurance Providers Payer Name Payer Address Payer Phone Subscriber Number Group Number Insured Name Patient Relationship to Insured Coverage Start Date Coverage End Date [employer] [address] [place] [phone] [id number] MARTINEZ COOPER Self - patient is the insured
== END 2025-03-14 15:19 | disposition home or self-care (01) ==
LOC: HO.HOS 13:15
PROVIDERS: Visit Provider Orthopaedic Surgery
DX: S68.114A Complete traumatic metacarpophalangeal amputation of right ring finger, initial encounter (principal); S62.632B Displaced fracture of distal phalanx of right middle finger, initial encounter for open fracture
CPT/HCPCS: 99024

== ENCOUNTER 2025-03-14 13:15 | Outpatient (REF) | payer BC, OTHER, SELFPAY ==
--- NOTE | ~2025-03-14 | XR_ITS ---
EXAMINATION: XR HAND 3 OR MORE VIEWS RIGHT HISTORY: M79.641 - Pain in right hand COMPARISON: Comparison is made with the prior examination dated 03/02/2025. FINDINGS: Three views of the right hand are submitted. Osseous mineralization is normal. Again seen are soft tissue injuries involving the 3rd and 4th fingers. There has been amputation of portion of the distal phalanx of the 4th finger. The joint spaces are preserved. XR/XR hand RT min 3V IMPRESSION: Status post amputation of a portion of the distal phalanx of the 4th finger. Electronically signed by: Abelino Joseph MD 03/14/2025 02:44 PM EDT
== END 2025-03-14 13:16 | disposition home or self-care (01) ==
LOC: HO.HOSX 13:15
PROVIDERS: Visit Provider Orthopaedic Surgery
DX: Z47.89 Encounter for other orthopedic aftercare (principal); S68.11 Complete traumatic metacarpophalangeal amputation of other and unspecified finger; X58.XXXD Exposure to other specified factors, subsequent encounter; Y99.0 Civilian activity done for income or pay
CPT/HCPCS: 73130; 99212

== ENCOUNTER → 2025-03-14 13:47 | Outpatient (BNV) | payer OTHER, SELFPAY | PROVIDERS: Visit Provider Radiology Diagnostic Radiology | DX: M79.641 Pain in right hand (principal); S68.624D Partial traumatic transphalangeal amputation of right ring finger, subsequent encounter | CPT/HCPCS: 73130 ==

== ENCOUNTER 2025-03-28 09:24 | Outpatient (AMB) | payer OTHER, SELFPAY ==
--- OUTSIDE RECORDS SUMMARY | 2024-03-13 11:00 | XMS_ITS ---
Author Organization [facility] [place] Address [address] [facility] 1 [place] [address] Care Team Providers Care Equine Intern Name Role Phone Migration, Provider Unavailable Unavailable REASON FOR VISIT Follow-up Appt Encounters Encounter Location Date Provider Diagnosis Formerly [facility], [address] [address] 03/13/2024 Provider Migration Plan Of Treatment No Information Progress Notes * ZAHRAA COOPEROB:1975 ([age] yo M)Acc No.[id number]:03/13/2024 Progress Notes Patient: Zion DUGGANMaryanne MARTINEZ Provider: Abdirahman lindsay Migration :1975 A ge:48 Y S ex:Male Date:03/13/2024 Address:[address] [place], [place] [id number] Subjective: * Chief Complaints: * F ollow-up Appt * Ocular Surgical History: Objective: Vision Examination: * Electronic signature of Prov ider Migration on 03/28/2025 at 10:13 AM EDT Sign off status: Pending * Provider: Abdirahman lindsay Migration Date: 0 03/13/2024 Generated for Muriel zheng/Barb/eTisrealsmitting on: 1 10:13 AM EDT
--- OUTSIDE RECORDS SUMMARY | 2024-04-27 12:00 | XMS_ITS ---
Author Organization [facility], [place] Address [address] [facility] 1 [place] [address] Care Team Providers Care Telescope Repairer Name Role Phone Migration, Provider Unavailable Unavailable REASON FOR VISIT Follow-up Appt Encounters Encounter Location Date Provider Diagnosis [facility], [address] [address] 04/27/2024 Provider Migration Plan Of Treatment No Information Progress Notes * ZAHRAA COOPEROB:1975 ([age] yo M)Acc No.[id number]:04/27/2024 Progress Notes Patient: Zion DUGGANMaryanneURSULAIS Provider: Abdirahman Bueno :1975 A ge:49 Y S ex:Male Date:04/27/2024 Address:[address] [place], [place] [phone] Subjective: * Chief Complaints: * F ollow-up Appt * Ocular Surgical History: Objective: Vision Examination: * Electronic signature of Prov ider Migration on 03/28/2025 at 10:14 AM EDT Sign off status: Pending * Provider: Abdirahman lindsay Migration Date: 1 Generated for Muriel zheng/Barb/eTisrealsmitting on: 10:14 AM EDT
[2025-03-28 09:51] VITALS: BMI 28.4
--- NOTE | 2025-03-28 09:51 | A.OFFVIS_ITS ---
Vital Signs 03/28/25 09:51 Height 5 ft 6 in Weight 176 lb BMI 28.4 Intake Visit Reasons: PO 2 wk RT RF amp revision 03/05/25 AR Intake Note: Olegario 49 year old left hand dominant male presents today for his P/O visit for his ring ring finger amputation revision from 03/05/[address] hernandez. He is here for a wound check. At his la st visit he was advise to lift nothing heavier than a cellphone for the next 6 weeks, will perform gentle ROM exercises at home and avoid any underwater activities. He works for the [employer]. He was given a note to remain out of work until his next appointment. Today patient states he continues to do daily dressing changes, no drainage, and mild discomfort. Allergies No Known Allergies Allergy (Verified 03/28/25 09:53) HPI HPI PO 2 wk RT RF amp revision 03/05/25 AR: Details: Olegario is a 49 year old right hand dominant man who presents S/P right middle finger distal phalanx I&D, & ring finger revision amputation, I&D, excision of sterile and germinal nail matrices, DOS: 03/05/25. This is from a crush injury at work, DOI: 02/28/25. He says he is doing well overall, and his pain is tolerable. He has completed his Abx as instructed. He works for the [employer], and has been out of work since his injury. [facility] Social History Patient Tobacco Use Status: Never used Tobacco Current occupational status: employed Current occupation: [employer] Works, left hand dominant Physical Exam Vital Signs: BMI result Body Mass Index 28.4 Extrem Other: The patient was alert oriented and in no acute distress The incision is healing well with no erythema drainage or evidence of infection. Ring finger sutures removed and Steri-Strips applied He can make a fist and extend all his digits Good ROM of the digits, including the ring finger Pad of the middle finger is healing well Ring finger appears to be healing well Sensation is intact Cap refill is brisk Radiographs: 3 views of the right hand were taken and viewed by me today in clinic. They show an amputation through the ring finger distal phalanx. Assessment & Plan Assessment & Plan (1) Traumatic amputation of right ring finger: Code(s): S68.114A - Complete traumatic metacarpophalangeal amputation of right ring finger, initial encounter Category: Medical (2) Traumatic amputation of right ring finger: Code(s): S68.114A - Complete traumatic metacarpophalangeal amputation of right ring finger, initial encounter Category: Medical (3) Open fracture of distal phalanx of right middle finger: Code(s): S62.632B - Displaced fracture of distal phalanx of right middle finger, initial encounter for open fracture Category: Medical Plan Assessment & Plan: 1. Right middle finger distal phalanx fracture, S/P I&D Sutures removed from this finger today 2. Right ring finger distal phalanx fracture & near amputation, S/P A) revision amputation B) I&D of open fracture C) excision of sterile and germinal nail matrices DOS: 03/05/25 DOI: 02/28/25 Crush injury at work The patient appears to be doing well post-operatively Ring finger sutures removed today I educated him about the post-operative course I explained the signs and symptoms of infection, if the patient develops any new or worsening erythema, drainage, pain, or warmth they should contact the clinic or attend the ED. I discussed activity modifications, he is to lift nothing heavier than a cellphone for the next 4 weeks. They should also avoid any heavy impact activities, falls, or sports activities for the next 8 weeks He will perform gentle ROM exercises at home He should avoid any underwater activities for the next week I ordered OT hand therapy to work on ROM & desensitization. This should not begi n for the next 2 weeks. He works for the [employer]. He was given a note to return to light duty on 04/02/25 fo the next 4 weeks. he says his work will keep him in the office at this time. He will follow up in 4 weeks for a wound check. Anticipate return to work at that time. Dr. Hernandez addendum: He will be following up next week to have the last 2 stitches removed. Plan is otherwise as noted above. Scribed for Bethany Hernandez MD by Santo Lin, medical doctor md/medical director, on 03/28/25 at 10:05 AM, EST. Orders: Orders XR hand RT min 3V Today M79.641 - Pain in right hand OT Evaluation and Treatment Today S62.632B - Displaced fracture of distal phalanx of right middle finger, initial encounter for open fracture, S68.114A - Complete traumatic metacarpophalangeal amputation of right ring finger, initial encounter Coding Level of Care Code Global (70366) Diagnoses Traumatic amputation of right ring finger S68.114A Open fracture of distal phalanx of right middle finger S62.632B
--- OUTSIDE RECORDS SUMMARY | 2025-03-28 10:13 | XMS_ITS | Clinical Summary ---
Author Organization [facility] [address] [facility] Address [address] [place] [address] Phone Care Team Providers Care Dental Intern Name Role Phone Hany Gee MD Primary Care Provider [phone] Allergies Active Allergy Reactions Criticality Noted Date [...] Safety Answer Date Record ed Physical Abuse Unrecognized value 09/29/2024 Verbal Abuse Unrecognized value 09/29/2024 Sex and Gender Information Value Date [...] 2025 Colorectal Cancer Screening: Colonoscopy 09/29/2034 09/29/2024 RSV Immunization Adult Patients (1 - 1-dose 75+ series) 2051 MMR Vaccines Aged Out 12/30/2018 No longer [...] Maintenance Results * COLONOSCOPY Anesthesia - MAC; [facility] ENDOSCOPY (09/29/2024 9:56 AM EDT) [...] for surveillance. Narrative 09/29/2024 9:55 AM EDT [facility] GI Patient Name: Olegario Lao Procedure [...] retroflexion views. Procedure Code(s): --- Professional --- 02610, Colonoscopy, flexible; diagnostic, including collection of specimen(s) by brushing or washing, when performed (separate procedure) Diagnosis Code(s): --- Professional --- K62.5, Hemorrhage of anus and rectum CPT copyright 2020 [employer]. All rights reserved. The codes documented in this report are preliminary and upon retail furniture sales review may be revised to meet current compliance requirements. Farshad Trejo MD 09/29/2024 9:55:40 AM This report has been signed electronically.Farshad Trejo MD Number of Addenda: 0 Note Initiated On: 09/29/2024 9:29 AM Scope In: Scope Out: Endoscopy Department at [facility] - [address] [place] [id number] Procedure Note Farshad Trejo MD - 09/29/2024 [facility] GI Patient Name: Olegario Lao Procedure [...] retroflexion views. Procedure Code(s): --- Professional --- 88552, Colonoscopy, flexible; diagnostic, including collection of specimen(s) by brushing or washing,when performed (separate procedure) Diagnosis Code(s): --- Professional --- K62.5, Hemorrhage of anus and rectum CPT copyright 2020 [employer]. All rights reserved. The codes documented in this report are preliminary and upon retail furniture sales reviewmay be revised to meet current compliance requirements. Farshad Trejo MD 09/29/2024 9:55:40 AM This report has been signed electronically.Farshad Trejo MD Number of Addenda: 0 Note Initiated On: 09/29/2024 9:29 AM Scope In: Scope Out: Endoscopy Department at [facility] - [address] [place] [id number] IMPRESSION: - Diverticulosis in the entire examined colon. - Non-bleeding internal hemorrhoids. - The examination was otherwise normal on directand retroflexion views. - No specimens collected. Recommendation: - Perform an upper GI endoscopy today. - Repeat colonoscopy in 10 years forsurveillance. Farshad Trejo MD GI~PROCEDURE ORDERABLES Final Result from Last 3 Months or Most Recently Relevant to Health Maintenance Insurance [facility] Care Teams Dental Intern Relationship Specialty Start Date End Date Hany Gee MD [address] [address] PCP - General Internal Medicine 07/04/24
--- OUTSIDE RECORDS SUMMARY | 2025-03-28 10:14 | XMS_ITS | Patient Health Record ---
Author Organization [facility] [place] Address [address] [place] [address] Care Team Providers Care Car Painter Name Role Phone Migration, Provider Unavailable Unavailable Reason For Referral No Information Encounters Encounter Location Date Provider Diagnosis [facility] [address] [address] 04/27/2024 Provider Migration Plan Of Treatment No Information Insurance Providers Payer Name Payer Address Payer Phone Subscriber Number Group Number Insured Name Patient Relationship to Insured Coverage Start Date Coverage End Date [employer] [place] [address] [place] [address] [phone] [id number] MARTINEZ COOPER Self - patient is the insured
--- OUTSIDE RECORDS SUMMARY | 2025-03-28 10:14 | XMS_ITS | Patient Health Record ---
Author Organization [facility] Address [address] [place] [address] Care Team Providers Care Golf Superintendent Name Role Phone Hany Gee Primary Care Provider Bart Gallegos Unavailable [phone] Reason For Referral No Information Medications Medication SIG (Take, Route, Fr equency, Duration) Notes Start Date End Date Status Ibuprofen Active Percocet 5-325 MG 1 tablet as needed O rally every 6 hrs 03/22/2012 Active Problems Problem Type SNOMED Code ICD Code Onset Dates Problem Status W/U Status Risk Notes Problem Hammer toe (923265589) Hammer toe (735.4) Active confirmed Problem Ganglion cyst (31758914) Ganglion Cyst (727.43) Active confirmed Problem Pain in limb (14286303) Pain in Limb (729.5) Active confirmed Problem Exostosis (43831692) Exostosis (726.91) Active confirmed Plan Of Treatment [...] Insured Coverage Start Date Coverage End Date [facility] [address] [place], [place] [address] [phone] [id number] Olegario Lao Self - patient is the insured Medical (General) History Medical History History ICD Code chicken pox headaches/migraines Surgical History Surgery Date(Month/Year) bunionectomy 03/17/12
== END 2025-03-28 10:38 | disposition home or self-care (01) ==
LOC: HO.HOS 09:24
PROVIDERS: Visit Provider Orthopaedic Surgery
DX: S68.114A Complete traumatic metacarpophalangeal amputation of right ring finger, initial encounter (principal); S62.632B Displaced fracture of distal phalanx of right middle finger, initial encounter for open fracture
CPT/HCPCS: 99024

== ENCOUNTER → 2025-03-28 09:26 | Outpatient (BNV) | payer OTHER, SELFPAY | PROVIDERS: Visit Provider Radiology Diagnostic Radiology | DX: M79.641 Pain in right hand (principal); Z89.021 Acquired absence of right finger(s) | CPT/HCPCS: 73130 ==

== ENCOUNTER 2025-03-28 12:01 | Outpatient (REF) | payer OTHER, BC, SELFPAY ==
--- OUTSIDE RECORDS SUMMARY | 2024-03-13 11:00 | XMS_ITS ---
Author Organization [facility], [place] Address [address] [facility] 1 [place] [address] Care Team Providers Care Loom Checker Name Role Phone Migration, Provider Unavailable Unavailable REASON FOR VISIT Follow-up Appt Encounters Encounter Location Date Provider Diagnosis Formerly [facility], [address] [address] 03/13/2024 Provider Migration Plan Of Treatment No Information Progress Notes * ZAHRAA COOPEROB:1975 ([age] yo M)Acc No.[id number]:03/13/2024 Progress Notes Patient: Zion DUGGANMaryanne MARTINEZ Provider: Abdirahman lindsay Migration :1975 A ge:48 Y S ex:Male Date:03/13/2024 Address:[address] [place], [place] [phone] Subjective: * Chief Complaints: * F ollow-up Appt * Ocular Surgical History: Objective: Vision Examination: * Electronic signature of Prov ider Migration on 03/29/2025 at 01:43 PM EDT Sign off status: Pending * Provider: Abdirahman lindsay Migration Date: 0 03/13/2024 Generated for Muriel zheng/Barb/eTisrealsmitting on: 1 01:43 PM EDT
--- OUTSIDE RECORDS SUMMARY | 2024-04-27 12:00 | XMS_ITS ---
Author Organization [facility], [place] Address [address] [facility] 1 [place] [address] Care Team Providers Care Graduate Assistant Athletic Trainer Name Role Phone Migration, Provider Unavailable Unavailable REASON FOR VISIT Follow-up Appt Encounters Encounter Location Date Provider Diagnosis [facility], [address] [address] 04/27/2024 Provider Migration Plan Of Treatment No Information Progress Notes * ZAHRAA COOPEROB:1975 ([age] yo M)Acc No.[id number]:04/27/2024 Progress Notes Patient: Zion DUGGANMaryanneURSULAIS Provider: Abdirahman lindsay Migration :1975 A ge:49 Y S ex:Male Date:04/27/2024 Address:[address] [place], [place] [phone] Subjective: * Chief Complaints: * F ollow-up Appt * Ocular Surgical History: Objective: Vision Examination: * Electronic signature of Prov ider Migration on 03/29/2025 at 01:43 PM EDT Sign off status: Pending * Provider: Abdirahman lindsay Migration Date: Generated for Muriel zheng/Barb/eTisrealsmitting on: 01:43 PM EDT
--- NOTE | ~2025-03-28 | XR_ITS ---
EXAMINATION: XR HAND 3 OR MORE VIEWS RIGHT HISTORY: M79.641 - Pain in right hand COMPARISON: Comparison is made with the prior examination dated 03/14/2025. FINDINGS: Three views of the right hand are submitted. Osseous mineralization is normal. The patient is again noted to be status post amputation of the distal tuft of the 4th finger. The joint spaces are preserved. The soft tissues are unremarkable. XR/XR hand RT min 3V IMPRESSION: Status post amputation of the distal tuft of the 4th finger. Electronically signed by: Abelino Joseph MD 03/28/2025 09:41 AM EDT
--- OUTSIDE RECORDS SUMMARY | 2025-03-29 13:44 | XMS_ITS | Patient Health Record ---
Author Organization [facility] [place] Address [address] [place] [address] Care Team Providers Care Bedspread Cutter Name Role Phone Migration, Provider Unavailable Unavailable Reason For Referral No Information Encounters Encounter Location Date Provider Diagnosis [facility] [address] [address] 04/27/2024 Provider Migration Plan Of Treatment No Information Insurance Providers Payer Name Payer Address Payer Phone Subscriber Number Group Number Insured Name Patient Relationship to Insured Coverage Start Date Coverage End Date [employer] [place] [address] [place] [phone] [id number] MARTINEZ COOPER Self - patient is the insured
--- OUTSIDE RECORDS SUMMARY | 2025-03-29 13:44 | XMS_ITS | Patient Health Record ---
Author Organization [facility] Address [address] [place] [address] Care Team Providers Care Machine Adjuster Leader Name Role Phone Hany Gee Primary Care Provider Bart Gallegos Unavailable [phone] Reason For Referral No Information Medications Medication SIG (Take, Route, Fr equency, Duration) Notes Start Date End Date Status Ibuprofen Active Percocet 5-325 MG 1 tablet as needed O rally every 6 hrs 03/22/2012 Active Problems Problem Type SNOMED Code ICD Code Onset Dates Problem Status W/U Status Risk Notes Problem Hammer toe (107544195) Hammer toe (735.4) Active confirmed Problem Ganglion cyst (73892922) Ganglion Cyst (727.43) Active confirmed Problem Pain in limb (72936254) Pain in Limb (729.5) Active confirmed Problem Exostosis (85696587) Exostosis (726.91) Active confirmed Plan Of Treatment [...] Insured Coverage Start Date Coverage End Date [facility] [address] [place], [place] [id number] Olegario Lao Self - patient is the insured Medical (General) History Medical History History ICD Code chicken pox headaches/migraines Surgical History Surgery Date(Month/Year) bunionectomy 03/17/12
--- OUTSIDE RECORDS SUMMARY | 2025-03-29 13:44 | XMS_ITS | Clinical Summary ---
Author Organization [facility] 299 [facility] Address [address] [place] [address] Phone Care Team Providers Care Occupational Therapy Specialist Name Role Phone Hany Gee MD Primary Care Provider [phone] Allergies Active Allergy Reactions Criticality Noted Date [...] Maintenance Results * COLONOSCOPY Anesthesia - MAC; [facility] ENDOSCOPY (09/29/2024 9:56 AM EDT) Anatomical [...] retroflexion views. Procedure Code(s): --- Professional --- 75815, Colonoscopy, flexible; diagnostic, including collection of specimen(s) by brushing or washing, when performed (separate procedure) Diagnosis Code(s): --- Professional --- K62.5, Hemorrhage of anus and rectum CPT copyright 2020 [employer]. All rights reserved. The codes documented in this report are preliminary and upon hims coder review may be revised to meet current compliance requirements. Farshad Trejo MD 09/29/2024 9:55:40 AM This report has been signed electronically.Farshad Trejo MD Number of Addenda: 0 Note Initiated On: 09/29/2024 9:29 AM Scope In: Scope Out: Endoscopy Department at [facility] - [address] [place] [phone] Procedure Note Farshad Trejo MD - 09/29/2024 [...] retroflexion views. Procedure Code(s): --- Professional --- 30339, Colonoscopy, flexible; diagnostic, including collection of specimen(s) by brushing or washing,when performed (separate procedure) Diagnosis Code(s): --- Professional --- K62.5, Hemorrhage of anus and rectum CPT copyright 2020 [employer]. All rights reserved. The codes documented in this report are preliminary and upon hims coder reviewmay be revised to meet current compliance requirements. Farshad Trejo MD 09/29/2024 9:55:40 AM This report has been signed electronically.Farshad Trejo MD Number of Addenda: 0 Note Initiated On: 09/29/2024 9:29 AM Scope In: Scope Out: Endoscopy Department at [facility] - [address] [place] [phone] IMPRESSION: - Diverticulosis in the entire examined colon. - Non-bleeding internal hemorrhoids. - The examination was otherwise normal on directand retroflexion views. - No specimens collected. Recommendation: - Perform an upper GI endoscopy today. - Repeat colonoscopy in 10 years forsurveillance. Farshad Trejo MD GI~PROCEDURE ORDERABLES Final Result from Last 3 Months or Most Recently Relevant to Health Maintenance Insurance [facility] Care Teams Occupational Therapy Specialist Relationship Specialty Start Date End Date Hany Gee MD [address] [address] PCP - General Internal Medicine 07/04/24
== END 2025-03-28 12:02 | disposition home or self-care (01) ==
LOC: HO.HOSX 12:01
PROVIDERS: Visit Provider Orthopaedic Surgery
DX: S68.11 Complete traumatic metacarpophalangeal amputation of other and unspecified finger (principal); W23.0XXD Caught, crushed, jammed, or pinched between moving objects, subsequent encounter
CPT/HCPCS: 73130; 99212

== ENCOUNTER 2025-04-04 09:50 | Outpatient (AMB) | payer OTHER, SELFPAY ==
[2025-04-04 10:41] VITALS: BMI 28.4
--- NOTE | 2025-04-04 10:41 | A.OFFVIS_ITS ---
Vital Signs 04/04/25 10:41 Height 5 ft 6 in Weight 176 lb BMI 28.4 Intake Visit Reasons: PO-RT RF amp revision 03/05/25 AR Intake Note: Olegario is a 50 year old left hand dominant male who presents today post- operatively for a wound check status post Right Middle Finger Distal Phalanx Fracture S/P I&D and Right Ring Finger Distal Phalanx Fracture S/P Amputation, DOS: 03/05/[address] Richmond. At his last visit, right middle finger sutures were removed. He was advised to lift nothing heavier than a cellphone for the next 4 weeks, to avoid any heavy impact activities, and to work on gentle ROM, avoiding underwater activities for the following week. OT referral placed to start after 2 weeks. Work note provided with light duty for 4 weeks beginning 04/02/25. States he has very little pain. He is here to have remaining sututres removed. Allergies No Known Allergies Allergy (Verified 04/04/25 10:48) HPI HPI PO-RT RF amp revision 03/05/25 AR: Details: Olegario is a 49 year old right hand dominant man who presents S/P right middle finger distal phalanx I&D, & ring finger revision amputation, I&D, excision of sterile and germinal nail matrices, DOS: 03/05/25. This is from a crush injury at work, DOI: 02/28/25. He is here for suture removal. He says he is doing well overall, and his pain is tolerable. He has completed his Abx as instructed. He works for the [employer], and has just returned on light duty this week. [facility] Social History Patient Tobacco Use Status: Never used Tobacco Current occupational status: employed Current occupation: [employer] Works, left hand dominant Physical Exam Vital Signs: BMI result Body Mass Index 28.4 Extrem Other: The patient was alert oriented and in no acute distress The incision is healing well with no erythema drainage or evidence of infection. Remaining sutures removed and Steri-Strips applied With encouragement he can bring his fingers almost closed to a fist. He still has some finger swelling Good ROM of the digits, including the ring finger Pad of the middle finger is healing well Ring finger appears to be healing well Sensation is intact Cap refill is brisk Radiographs: 3 views of the right hand from 03/28/25 were reviewed by me today in clinic. They show an amputation through the ring finger distal phalanx. Assessment & Plan Assessment & Plan (1) Traumatic amputation of right ring finger: Code(s): S68.114A - Complete traumatic metacarpophalangeal amputation of right ring finger, initial encounter Category: Medical (2) Open fracture of distal phalanx of right middle finger: Code(s): S62.632B - Displaced fracture of distal phalanx of right middle finger, initial encounter for open fracture Category: Medical Plan Assessment & Plan: 1. Right middle finger distal phalanx fracture, S/P I&D Sutures removed from this finger today 2. Right ring finger distal phalanx fracture & near amputation, S/P A) revision amputation B) I&D of open fracture C) excision of sterile and germinal nail matrices DOS: 03/05/25 DOI: 02/28/25 Crush injury at work The patient appears to be doing well post-operatively Remaining sutures removed today in clinic I educated him about the post-operative course I explained the signs and symptoms of infection, if the patient develops any new or worsening erythema, drainage, pain, or warmth they should contact the clinic or attend the ED. I discussed activity modifications, he is to lift nothing heavier than a cellphone for the next 3 weeks. They should also avoid any heavy impact activities, falls, or sports activities for the next 7 weeks He will perform gentle ROM exercises at home I ordered OT hand therapy to work on ROM & desensitization. He works for the [employer]. He will continue on light duty until his next appointment. he says his work will keep him in the office at this time. He will follow up on 04/24/25 for a wound check. Anticipate return to work at that time. Scribed for Bethany Richmond MD by Santo Lin, medical center manager, on 04/04/25 at 10:50 AM, EST. Coding Level of Care Code Global (59663) Diagnoses Traumatic amputation of right ring finger S68.114A Open fracture of distal phalanx of right middle finger S62.632B
== END 2025-04-04 11:08 | disposition home or self-care (01) ==
LOC: HO.HOS 09:50
PROVIDERS: Visit Provider Orthopaedic Surgery
DX: S68.114A Complete traumatic metacarpophalangeal amputation of right ring finger, initial encounter (principal); S62.632B Displaced fracture of distal phalanx of right middle finger, initial encounter for open fracture
CPT/HCPCS: 99024

== ENCOUNTER → 2025-04-04 09:50 | Outpatient (BNVA) | payer OTHER, SELFPAY | PROVIDERS: Visit Provider Orthopaedic Surgery | DX: Z98.890 Other specified postprocedural states (principal); S68.11 Complete traumatic metacarpophalangeal amputation of other and unspecified finger | CPT/HCPCS: 99212 ==

== ENCOUNTER 2025-04-11 07:48 | Outpatient (RCR) | payer BC, SELFPAY ==
--- NOTE | 2025-04-11 08:42 | MHC.OT.EP ---
[facility] Office [address] [phone] F: [phone] F: [phone] Occupational Therapy Plan of Care Patient Name: Olegario Lao Date of Evaluation: 04/11/25 Diagnosis: Right Middle Finger and Ring Finger Trauma w/ I&D and distal amputation Pain Location: Denies pain in digits Pain Score: 0 Pain Scale Used: Aggravating Factors: No issues Alleviating Factors: Nothing used Assessment: 50 yo male works for [employer], work injury resulting in trauma to right middle and ring fingers when metal plate came down onto his hand. He is post op I&D of distal middle finger and I&D w/ amputation revision of distal ring finger. He was out of work through February and now on light duty until the end of the month. He presents today doing very well with good range and functional use of right hand, no pain or sensitivity noted. Wounds are healing very well w/ small areas of dried scabbing. He has had good follow through w/ ROM as educated by Dr. Richmond, and today we reviewed exercises and added scar massage and desensitization to home program. No further outpatient hand therapy indicated at this time. Electronically Signed By: Lida Chaudhari OTR/L CHT Please Sign and return to therapist. Thank you once again for your referral.
== END 2025-04-11 08:46 | disposition home or self-care (01) ==
LOC: HO.OT 07:48
PROVIDERS: PCP Internal Medicine; Visit Provider Orthopaedic Surgery
DX: S68.11 Complete traumatic metacarpophalangeal amputation of other and unspecified finger (principal); S62.632D Displaced fracture of distal phalanx of right middle finger, subsequent encounter for fracture with routine healing
CPT/HCPCS: 97110; 97165

== ENCOUNTER 2025-04-24 09:31 | Outpatient (AMB) | payer OTHER, SELFPAY ==
[2025-04-24 10:10] VITALS: BMI 28.4
--- NOTE | 2025-04-24 10:10 | MHC.OFFVIS ---
Vital Signs 04/24/25 10:10 Height 5 ft 6 in Weight 176 lb BMI 28.4 Intake Visit Reasons: PO-RT RF amp revision 03/05/25 AR-4WK Intake Note: Olegario is a 50 year old left hand dominant male who presents today post-operatively for a wound check status post Right Middle Finger Distal Phalanx Fracture S/P I&D and Right Ring Finger Distal Phalanx Fracture S/P Amputation, DOS: 03/05/[address] Richmond. At his last visit he was advise to work on ROM and do daily dressing changes. At todays visit we anticipate return to work. States he has no pain and is able to make a close fist. STates he has a little tingling at the tip of his finger. Allergies No Known Allergies Allergy (Verified 04/24/25 10:11) HPI HPI PO-RT RF amp revision 03/05/25 AR-4WK: Details: Olegario is a 49 year old right hand dominant man who presents S/P right middle finger distal phalanx I&D, & ring finger revision amputation, I&D, excision of sterile and germinal nail matrices, DOS: 03/05/25. This is from a crush injury at work, DOI: 02/28/25. He says he is doing very well, with no pain & good ROM. He says he has improved his hypersensitivity, and he is very pleased with the results of his surgery. He says he is ready to go back to work at full duty. He works for the [employer], and has been working light duty. [facility] Social History Patient Tobacco Use Status: Never used Tobacco Current occupational status: employed Current occupation: [employer] Works, left hand dominant Review of Systems Const All systems reviewed & are unremarkable except as noted in HPI and below Physical Exam Vital Signs: BMI result Body Mass Index 28.4 Const General: no acute distress and alert Orientation/consciousness: patient oriented x3 Neuro General: patient oriented x3 Extrem Other: Evaluation of Right Upper Extremity: The patient is alert, oriented, and in no acute distress Neuro: Median, Ulnar, Radial nerves motor and sensory intact and sensation is normal to the tips of all digits Vascular: Cap refill brisk ROM: He can make a fist and extend all his digits All wounds well healed. No hypersensitivity. Excellent range of motion. Psych Appearance: grossly normal Affect: normal affect Attitude: cooperative Assessment & Plan Assessment & Plan (1) Traumatic amputation of right ring finger: Code(s): S68.114A - Complete traumatic metacarpophalangeal amputation of right ring finger, initial encounter Category: Medical (2) Open fracture of distal phalanx of right middle finger: Code(s): S62.632B - Displaced fracture of distal phalanx of right middle finger, initial encounter for open fracture Category: Medical Plan Assessment & Plan: 1. Right middle finger distal phalanx fracture, S/P I&D 2. Right ring finger distal phalanx fracture & near amputation, S/P A) revision amputation B) I&D of open fracture C) excision of sterile and germinal nail matrices DOS: 03/05/25 DOI: 02/28/25 Crush injury at work The patient appears to be doing well post-operatively & is happy with the results of his surgery. He should continue to work on ROM exercises at home He works for the [employer]. He was given a note for work to return to full duty, without restrictions, effective 04/24/25 He will follow up prn Scribed for Bethany Richmond MD by bhavik Pierre scribe, on 04/24/25 at 10:30 AM, EST. Scribe Plan - Not visible on output: Scribed for Bethany Richmond MD by bhavik Pierre scribe, on [ ] at [ ], EST. Coding Level of Care Code Global (98166) Diagnoses Traumatic amputation of right ring finger S68.114A Open fracture of distal phalanx of right middle finger S62.632B
--- OUTSIDE RECORDS SUMMARY | 2025-04-24 10:56 | XMS_ITS | Clinical Summary ---
Author Organization [facility] 299 [facility] Address [address] [place] [address] Phone Care Team Providers Care Ict Support Engineer Name Role Phone Hany Gee MD Primary Care Provider [phone] Allergies Active Allergy Reactions Criticality Noted Date [...] Results * COLONOSCOPY Anesthesia - MAC; [facility] END[facility]COPY (09/29/2024 9:56 AM EDT) Anatomical [...] for surveillance. Narrative 09/29/2024 9:55 AM EDT [facility] Patient Name: Olegario Lao Procedure [...] retroflexion views. Procedure Code(s): --- Professional --- 24724, Colonoscopy, flexible; diagnostic, including collection of specimen(s) by brushing or washing, when performed (separate procedure) Diagnosis Code(s): --- Professional --- K62.5, Hemorrhage of anus and rectum CPT copyright 2020 [employer]. All rights reserved. The codes documented in this report are preliminary and upon forest supervisor review may be revised to meet current compliance requirements. Farshad Trejo MD 09/29/2024 9:55:40 AM This report has been signed electronically.Farshad Trejo MD Number of Addenda: 0 Note Initiated On: 09/29/2024 9:29 AM Scope In: Scope Out: Endoscopy Department at [facility] - [address] [place] [phone] Procedure Note Farshad Trejo MD - 09/29/2024 [facility] Patient Name: Olegario Lao Procedure [...] retroflexion views. Procedure Code(s): --- Professional --- 85501, Colonoscopy, flexible; diagnostic, including collection of specimen(s) by brushing or washing,when performed (separate procedure) Diagnosis Code(s): --- Professional --- K62.5, Hemorrhage of anus and rectum CPT copyright 2020 [employer]. All rights reserved. The codes documented in this report are preliminary and upon forest supervisor reviewmay be revised to meet current compliance requirements. Farshad Trejo MD 09/29/2024 9:55:40 AM This report has been signed electronically.Farshad Trejo MD Number of Addenda: 0 Note Initiated On: 09/29/2024 9:29 AM Scope In: Scope Out: Endoscopy Department at [facility] - [address] [place] [phone] IMPRESSION: - Diverticulosis in the entire examined colon. - Non-bleeding internal hemorrhoids. - The examination was otherwise normal on directand retroflexion views. - No specimens collected. Recommendation: - Perform an upper GI endoscopy today. - Repeat colonoscopy in 10 years forsurveillance. Farshad Trejo MD GI~PROCEDURE ORDERABLES Final Result from Last 3 Months or Most Recently Relevant to Health Maintenance Insurance [facility] Care Teams Ict Support Engineer Relationship Specialty Start Date End Date Hany Gee MD [address] [address] PCP - General Internal Medicine 07/04/24
== END 2025-04-24 10:47 | disposition home or self-care (01) ==
LOC: HO.HOS 09:31
PROVIDERS: Visit Provider Orthopaedic Surgery
DX: S68.114A Complete traumatic metacarpophalangeal amputation of right ring finger, initial encounter (principal); S62.632B Displaced fracture of distal phalanx of right middle finger, initial encounter for open fracture
CPT/HCPCS: 99024

== ENCOUNTER → 2025-04-24 09:31 | Outpatient (BNVA) | payer OTHER, SELFPAY | PROVIDERS: Visit Provider Orthopaedic Surgery | DX: S68.11 Complete traumatic metacarpophalangeal amputation of other and unspecified finger (principal); S62.632D Displaced fracture of distal phalanx of right middle finger, subsequent encounter for fracture with routine healing | CPT/HCPCS: 99212 ==